=== PATIENT | female | born 1975 | race American Indian/Alaskan Native ===

== ENCOUNTER 2017-11-16 19:02 | Emergency (ER) | payer MEDICARE ==
[2017-11-16 20:07] LABS: Basophils # (Auto) 0.1 K/mm3 (0.0-0.1); Eosinophils # (Auto) 0.1 K/mm3 (0.0-0.4); Hematocrit 41.9 % (30.3-42.9); Hemoglobin 13.5 gm/dl (10.1-14.3); Lymphocytes # (Auto) 2.1 K/mm3 (1.2-5.4); Lymphocytes % (Auto) 30.1 % (13.4-35.0); Mean Corpuscular HGB Conc 32 % (30-34); Mean Corpuscular Hemoglobin 27 pg (28-32); Mean Corpuscular Volume 84 fl (79-97); Monocytes # (Auto) 0.4 K/mm3 (0.0-0.8); Monocytes % (Auto) 6.1 % (0.0-7.3); Platelet Count 199 K/mm3 (140-440); Red Blood Count 4.97 M/mm3 (3.65-5.03); Red Cell Distribution Width 14.5 % (13.2-15.2)
[2017-11-16 20:19] LABS: BUN/Creatinine Ratio 25; Blood Urea Nitrogen 15 mg/dL (7-17); Calcium 8.5 mg/dL (8.4-10.2); Hemolysis Index 39
--- NOTE | 2017-11-16 21:49 | XRay Report ---
FINAL REPORT EXAM: XR CHEST ROUTINE 2V HISTORY: Shortness of breath TECHNIQUE: PA and lateral views of the chest PRIORS: None. FINDINGS: Lines, tubes, and devices: N/A Lungs and pleura: Trachea is normal in position. Lungs are clear of infiltrate, pleural effusion, vascular congestion, or pneumothorax. Cardiomediastinal silhouette: Cardiac and mediastinal silhouettes are unremarkable. Other: Bony structures are intact. IMPRESSION: No acute cardiopulmonary process seen.
[2017-11-16 21:56] LABS: Alanine Aminotransferase 37 units/L (7-56); Albumin 3.9 g/dL (3.9-5); Bilirubin,Direct < 0.2 mg/dL (0-0.2)
--- NOTE | 2017-11-16 22:29 | Emergency Department Report ---
ED General Adult HPI - General Chief complaint: Extremity Problem,Nontraumatic Stated complaint: LEG PAIN/HTN Time Seen by Provider: 11/16/17 20:06 Source: patient Mode of arrival: Ambulatory Limitations: No Limitations - History of Present Illness Initial comments: This is a 42-year-old diabetic and hypertensive female who comes to the emergency room complaining of chronic pain which is worsened over the last 2 days and swelling in the lower extremities. She states she has some mild shortness of breath but otherwise no other symptoms like chest pain, abdominal pain, nausea vomiting diarrhea, fever or chills. She states that in [place] her doctor there gave her narcotics for her pain. She states that she has Neurontin at home which is what I suggested for her to take as well. She states that she will take some ibuprofen but it did not help the pain. She also has a history of fibromyalgia. No significant social history is appreciated. I commented that her blood pressure was elevated here in the ER. I told her that I would like to give her some blood pressure medications. She stated she did not need any and that she usually takes it at home and it is time For her to take her home blood pressure medicine. I offered again to give her blood pressure medicine and she again refused. I offered her an injection for her pain of the lower extremities. She states she does not want an injection. -: Gradual, days(s) (2 2) Location: lower extremity Radiation: non-radiation Consistency: constant Improves with: none Worsens with: none Associated Symptoms: denies other symptoms Treatments Prior to Arrival: NSAID - Related Data Allergies Allergy/AdvReac Type Severity Reaction Status Date / Time No Known Allergies Allergy Unverified 11/16/17 19:34 ED Review of Systems ROS: Stated complaint: LEG PAIN/HTN Other details as noted in HPI Comment: All other systems reviewed and negative Constitutional: no symptoms reported Eyes: as per HPI ENT: as per HPI Respiratory: see HPI Cardiovascular: as per HPI Endocrine: see HPI Gastrointestinal: as per HPI Genitourinary: as per HPI Musculoskeletal: as per HPI Skin: as per HPI Neurological: as per HPI Psychiatric: as per HPI Hematological/Lymphatic: as per HPI ED Past Medical Hx - Past Medical History Previous Medical History?: Yes Hx Hypertension: Yes Hx Diabetes: Yes Additional medical history: fibromyalgia - Surgical History Past Surgical History?: Yes Additional Surgical History: hysterectomy 2002 - Social History Smoking Status: Never Smoker Substance Use Type: None ED Physical Exam - General Limitations: No Limitations General appearance: alert, in no apparent distress - Head Head exam: Present: atraumatic, normocephalic - Eye Eye exam: Present: normal appearance, PERRL, EOMI - ENT ENT exam: Present: normal exam, normal orophraynx - Neck Neck exam: Present: normal inspection - Respiratory Respiratory exam: Present: normal lung sounds bilaterally. Absent: respiratory distress, wheezes, rales, rhonchi - Cardiovascular Cardiovascular Exam: Present: regular rate, normal rhythm, normal heart sounds - GI/Abdominal GI/Abdominal exam: Present: soft, normal bowel sounds. Absent: distended, tenderness, guarding, rebound, rigid - Rectal Rectal exam: Present: deferred - Extremities Exam Extremities exam: Present: normal inspection, full ROM, other (there may be trace edema in the lower extremities bilaterally but nothing significant.) - Back Exam Back exam: Present: normal inspection, full ROM - Neurological Exam Neurological exam: Present: alert, oriented X3, CN II-XII intact - Psychiatric Psychiatric exam: Present: normal affect, normal mood - Skin Skin exam: Present: warm, dry, intact, normal color ED Course Vital Signs 11/16/17 11/16/17 11/16/17 19:29 20:26 20:30 Temperature 98 F Pulse Rate 70 72 68 Respiratory 18 14 11 L Rate Blood Pressure 216/100 225/117 O2 Sat by Pulse 100 100 100 Oximetry 11/16/17 11/16/17 11/16/17 20:31 21:01 21:30 Temperature Pulse Rate 71 69 Respiratory 18 13 10 L Rate Blood Pressure 225/117 191/99 O2 Sat by Pulse 100 100 100 Oximetry 11/16/17 22:04 Temperature Pulse Rate 80 Respiratory 31 H Rate Blood Pressure 191/99 O2 Sat by Pulse Oximetry - Reevaluation(s) Reevaluation #1: 11/16/17 22:38 I explained to the patient that we do not prescribe narcotics from the ER. She will need to go to her primary care doctor or her pain management doctor for any narcotic refills. I advised her that I could give her a shot here in the emergency room or give her a pill in the emergency room but that would be the extent of it. I again advised her to use Neurontin that she has at home in conjunction with her anti-inflammatory medication for her pain control. She states she has this already at home and it was not helping which is why she came to the ER. She states she was given tramadol but it was not helping. She states that "10s to work for her". I told her I would give her [place] 10 in the emergency room but would not be prescribing that to her. She expresses understanding. Discharged accordingly, her labs reveal no acute findings. Her d-dimer is negative and her BNP is within normal limits. ED Medical Decision Making - Lab Data Result diagrams: 11/16/17 19:46 11/16/17 19:46 Critical care attestation.: If time is entered above; I have spent that time in minutes in the direct care of this critically ill patient, excluding procedure time. ED Disposition Clinical Impression: Fibromyalgia, Hypertension, uncontrolled Peripheral neuropathy Qualifiers: Peripheral neuropathy type: polyneuropathy, other Qualified Code(s): G62.89 - Other specified polyneuropathies Disposition: DC-01 TO HOME OR SELFCARE Is pt being admited?: No Does the pt Need Aspirin: No Condition: Stable Instructions: Diabetic Neuropathy (ED), Fibromyalgia (ED), Hypertension (ED) Additional Instructions: Rest, fluids, watch for worsening, new symptoms, return as needed, call 911 if you think you're having a life threatening emergency, follow up with your primary care doctor. Referrals: AURELIO JAFFE MD [Primary Care Provider] - 3-5 Days
[2017-11-16 22:36] VITALS: BP 172/112
[2017-11-16] MEDS ORDERED: NORCO 10/325 PO ONE (22:42)
== END 2017-11-16 23:01 | disposition home or self-care (01) ==
LOC: ED 19:02
DX: M79.7 Fibromyalgia (principal); I10 Essential (primary) hypertension; E11.40 Type 2 diabetes mellitus with diabetic neuropathy, unspecified
CPT/HCPCS: 36415; 71046; 80048; 80074; 83880; 85025; 85379; 93005; 93010; 99284

== ENCOUNTER 2017-11-24 02:12 | Emergency (ER) | payer MEDICARE ==
[2017-11-24 02:47] LABS: Basophils # (Auto) 0.1 K/mm3 (0.0-0.1); Basophils % (Auto) 1.2 % (0.0-1.8); Eosinophils # (Auto) 0.2 K/mm3 (0.0-0.4); Eosinophils % (Auto) 2.4 % (0.0-4.3); Hematocrit 41.6 % (30.3-42.9); Hemoglobin 13.9 gm/dl (10.1-14.3); Lymphocytes # (Auto) 2.2 K/mm3 (1.2-5.4); Lymphocytes % (Auto) 30.9 % (13.4-35.0); Mean Corpuscular HGB Conc 33 % (30-34); Mean Corpuscular Hemoglobin 27 pg (28-32); Mean Corpuscular Volume 82 fl (79-97); Monocytes # (Auto) 0.6 K/mm3 (0.0-0.8); Monocytes % (Auto) 7.7 % (0.0-7.3); Platelet Count 209 K/mm3 (140-440); Red Blood Count 5.06 M/mm3 (3.65-5.03)
[2017-11-24 03:08] LABS: BUN/Creatinine Ratio 18; Blood Urea Nitrogen 9 mg/dL (7-17); Calcium 8.4 mg/dL (8.4-10.2); Hemolysis Index 80
[2017-11-24 03:32] LABS: Bilirubin,Urine NEG (Negative); Blood,Urine NEG (Negative); Color,Urine Yellow (Yellow); Mucus,Urine 3+ /HPF; Protein,Urine <15 mg/dL mg/dL (Negative)
[2017-11-24 06:43] LABS: HCG Qualitative,Urine Negative (Negative)
[2017-11-24] MEDS ORDERED: NORCO 5/325 PO ONE (06:46)
--- NOTE | 2017-11-24 06:46 | Emergency Department Report ---
Chief Complaint: Pain General Stated Complaint: FLANK PAIN - HPI History of Present Illness: 42-year-old female past medical history diabetes hypertension? History of DVTs , history of chronic pain presents with complaint of left upper extremity discomfort and worsening bilateral lower extremity pain or some left leg and right leg. Pt is AAOx3, NAD, denies any chest pain or shortness of breath. Denies any recent falls or trauma. Denies any recent travel. Patient is not able to clearly tell me if she has had a DVT while has been anticoagulated within the last year but does state that she was told in the past she had clots in her legs - ROS Review of Systems: Complaint of acute on chronic lower extremity pain and swelling and left arm pain - Exam Vital Signs: Vital Signs 11/24/17 11/24/17 02:13 02:16 Temperature 98.4 F 98.4 F Pulse Rate 93 H Respiratory 18 Rate Blood Pressure 179/88 O2 Sat by Pulse 99 Oximetry Physical Exam: Left calf pain on deep palpation, +1 edema bilateral lower extremities. Heart S1-S2, patient is awake alert and oriented times 3 MSE screening note: Focused history and physical exam performed. Due to findings the following was ordered: Screening Assessment/Plan/Differential Dx: Lower extremity pain,? Left arm/ flank pain 1- This initial assessment/diagnostic orders/clinical plan/ treatment(s) is/are subject to change based on pt's health status, clinical progression and re- assessment by fellow clinical providers in the ED. Further treatment and workup at subsequent clinical provers discretion. Patient/guardians urged not to elope from ED as their condition may be serious if not clinically assessed and managed. 2-CBC, BMP done in triage 3-lower extremity Doppler ordered as patient has questionable history of previous DVT is now complaining of lower extremity pain ED Medical Decision Making - Lab Data Result diagrams: 11/24/17 02:33 11/24/17 02:33 ED Disposition for MSE Condition: Stable Referrals: PRIMARY CARE, [Primary Care Provider] - 3-5 Days
--- NOTE | 2017-11-24 07:17 | Emergency Department Report ---
ED Extremity Problem HPI - General Chief complaint: Pain General Stated complaint: FLANK PAIN Time Seen by Provider: 11/24/17 07:09 Source: patient, family Mode of arrival: Ambulatory Limitations: No Limitations - History of Present Illness Initial comments: 42-year-old female past medical history diabetes hypertension? History of DVTs , history of chronic pain presents with complaint of left upper extremity discomfort and worsening bilateral lower extremity pain or some left leg and right leg. Pt is AAOx3, NAD, denies any chest pain or shortness of breath. Denies any recent falls or trauma. Denies any recent travel. Patient is not able to clearly tell me if she has had a DVT while has been anticoagulated within the last year but does state that she was told in the past she had clots in her legs. She would fibromyalgia and she says she has chronic pain but pain is different from her fibromyalgia pain. Denies any fever or chills. Patient has a history of peripheral neuropathy MD Complaint: extremity pain Onset/Timin -: week(s) Location: bilateral lower extremity History of Same: Yes -: Yes myalgia, Yes arthralgia, No fever, No associated dyspnea, No associated chest pain Radiation: none Severity scale (0 -10): 4 Quality: aching Consistency: constant Improves with: immobilization, rest Worsens with: weight bearing, walking Associated Symptoms: myalgias, arthralgias. denies: chest pain, shortness of breath, fever, rash - Related Data Previous Rx's Medication Instructions Recorded Last Taken Type Bisacodyl [Dulcolax] 10 mg PO DAILY PRN 1 Days #2 tab 11/24/17 Unknown Rx Ondansetron [Zofran Odt] 4 mg PO Q6H PRN #12 tab.rapdis 11/24/17 Unknown Rx traMADol [Ultram] 50 mg PO Q6HR PRN #12 tablet 11/24/17 Unknown Rx Allergies Allergy/AdvReac Type Severity Reaction Status Date / Time No Known Allergies Allergy Unverified 11/16/17 19:34 ED Review of Systems ROS: Stated complaint: FLANK PAIN Other details as noted in HPI Comment: All other systems reviewed and negative Constitutional: no symptoms reported Respiratory: no symptoms reported Cardiovascular: denies: chest pain, palpitations, dyspnea on exertion, edema, syncope, paroxysmal nocturnal dyspnea Gastrointestinal: nausea, constipation. denies: abdominal pain, vomiting Genitourinary: denies: urgency, dysuria, frequency, hematuria, discharge Musculoskeletal: arthralgia, myalgia. denies: back pain, joint swelling Skin: denies: rash Neurological: denies: headache, numbness, paresthesias, abnormal gait ED Past Medical Hx - Past Medical History Previous Medical History?: Yes Hx Hypertension: Yes Hx Diabetes: Yes Hx Asthma: Yes Additional medical history: fibromyalgia, "over active thyroid" - Surgical History Past Surgical History?: Yes Additional Surgical History: hysterectomy 2001 - Family History Family history: hypertension - Social History Smoking Status: Never Smoker Substance Use Type: Alcohol - Medications Home Medications: Home Medications Medication Instructions Recorded Confirmed Last Taken Type Bisacodyl [Dulcolax] 10 mg PO DAILY PRN 1 Days #2 tab 11/24/17 Unknown Rx Ondansetron [Zofran Odt] 4 mg PO Q6H PRN #12 tab.rapdis 11/24/17 Unknown Rx traMADol [Ultram] 50 mg PO Q6HR PRN #12 tablet 11/24/17 Unknown Rx ED Physical Exam - General Limitations: No Limitations General appearance: alert, in no apparent distress - Head Head exam: Present: atraumatic, normocephalic, normal inspection - Eye Eye exam: Present: normal appearance, PERRL, EOMI Pupils: Present: normal accommodation - ENT ENT exam: Present: normal exam, normal orophraynx, mucous membranes moist - Neck Neck exam: Present: normal inspection, other (no C-spine tenderness). Absent: tenderness, meningismus, full ROM, lymphadenopathy - Respiratory Respiratory exam: Present: normal lung sounds bilaterally. Absent: respiratory distress, chest wall tenderness - Cardiovascular Cardiovascular Exam: Present: regular rate, normal rhythm, normal heart sounds. Absent: systolic murmur, diastolic murmur - GI/Abdominal GI/Abdominal exam: Present: soft, normal bowel sounds. Absent: distended, tenderness, guarding, rebound, rigid - Extremities Exam Extremities exam: Present: normal inspection, full ROM, tenderness (both legs), normal capillary refill, other (no clubbing, cyanosis or edema. +2 pulses all extremities. No neurovascular compromise.). Absent: pedal edema, joint swelling, calf tenderness - Back Exam Back exam: Present: normal inspection, full ROM, other (ambulates without any difficulties). Absent: tenderness, CVA tenderness (R), CVA tenderness (L), rash noted - Neurological Exam Neurological exam: Present: alert, oriented X3, normal gait, reflexes normal. Absent: motor sensory deficit - Psychiatric Psychiatric exam: Present: normal affect, normal mood - Skin Skin exam: Present: warm, dry, intact, normal color. Absent: rash ED Course Vital Signs 11/24/17 11/24/17 02:13 02:16 Temperature 98.4 F 98.4 F Pulse Rate 93 H Respiratory 18 Rate Blood Pressure 179/88 O2 Sat by Pulse 99 Oximetry - Reevaluation(s) Reevaluation #1: 11/24/17 09:27 Patient given hydrocodone 1 tablet in emergency room for pain which relieved her pain. ED Medical Decision Making - Lab Data Result diagrams: 11/24/17 02:33 11/24/17 02:33 Lab Results 11/24/17 11/24/17 11/24/17 Range/Units 02:33 02:33 Unknown WBC 7.1 (4.5-11.0) K/mm3 RBC 5.06 H (3.65-5.03) M/mm3 Hgb 13.9 (10.1-14.3) gm/dl Hct 41.6 (30.3-42.9) % MCV 82 (79-97) fl MCH 27 L (28-32) pg MCHC 33 (30-34) % RDW 14.0 (13.2-15.2) % Plt Count 209 (140-440) K/mm3 Lymph % (Auto) 30.9 (13.4-35.0) % [place] % (Auto) 7.7 H (0.0-7.3) % Eos % (Auto) 2.4 (0.0-4.3) % Baso % (Auto) 1.2 (0.0-1.8) % Lymph # 2.2 (1.2-5.4) K/mm3 [place] # 0.6 (0.0-0.8) K/mm3 Eos # 0.2 (0.0-0.4) K/mm3 Baso # 0.1 (0.0-0.1) K/mm3 Seg Neutrophils % 57.8 (40.0-70.0) % Seg Neutrophils # 4.1 (1.8-7.7) K/mm3 Sodium 141 (137-145) mmol/L Potassium 3.8 (3.6-5.0) mmol/L Chloride 101.5 (98-107) mmol/L Carbon Dioxide 28 (22-30) mmol/L Anion Gap 15 mmol/L BUN 9 (7-17) mg/dL Creatinine 0.5 L (0.7-1.2) mg/dL Estimated GFR > 60 ml/min BUN/Creatinine Ratio 18 % Glucose 99 (65-100) mg/dL Calcium 8.4 (8.4-10.2) mg/dL Urine Color Yellow (Yellow) Urine Turbidity Clear (Clear) Urine pH 5.0 (5.0-7.0) Ur Specific [place] 1.025 (1.003-1.030) Urine Protein <15 mg/dl (Negative) mg/dL Urine Glucose (UA) Neg (Negative) mg/dL Urine Ketones Neg (Negative) mg/dL Urine Blood Neg (Negative) Urine Nitrite Neg (Negative) Urine Bilirubin Neg (Negative) Urine Urobilinogen 4.0 (<2.0) mg/dL Ur Leukocyte Esterase Neg (Negative) Urine WBC (Auto) 1.0 (0.0-6.0) /HPF Urine RBC (Auto) 1.0 (0.0-6.0) /HPF U Epithel Cells (Auto) 5.0 (0-13.0) /HPF Urine Mucus 3+ /HPF Urine HCG, Qual (Negative) 11/24/17 Range/Units Unknown WBC (4.5-11.0) K/mm3 RBC (3.65-5.03) M/mm3 Hgb (10.1-14.3) gm/dl Hct (30.3-42.9) % MCV (79-97) fl MCH (28-32) pg MCHC (30-34) % RDW (13.2-15.2) % Plt Count (140-440) K/mm3 Lymph % (Auto) (13.4-35.0) % [place] % (Auto) (0.0-7.3) % Eos % (Auto) (0.0-4.3) % Baso % (Auto) (0.0-1.8) % Lymph # (1.2-5.4) K/mm3 [place] # (0.0-0.8) K/mm3 Eos # (0.0-0.4) K/mm3 Baso # (0.0-0.1) K/mm3 Seg Neutrophils % (40.0-70.0) % Seg Neutrophils # (1.8-7.7) K/mm3 Sodium (137-145) mmol/L Potassium (3.6-5.0) mmol/L Chloride (98-107) mmol/L Carbon Dioxide (22-30) mmol/L Anion Gap mmol/L BUN (7-17) mg/dL Creatinine (0.7-1.2) mg/dL Estimated GFR ml/min BUN/Creatinine Ratio % Glucose (65-100) mg/dL Calcium (8.4-10.2) mg/dL Urine Color (Yellow) Urine Turbidity (Clear) Urine pH (5.0-7.0) Ur Specific [place] (1.003-1.030) Urine Protein (Negative) mg/dL Urine Glucose (UA) (Negative) mg/dL Urine Ketones (Negative) mg/dL Urine Blood (Negative) Urine Nitrite (Negative) Urine Bilirubin (Negative) Urine Urobilinogen (<2.0) mg/dL Ur Leukocyte Esterase (Negative) Urine WBC (Auto) (0.0-6.0) /HPF Urine RBC (Auto) (0.0-6.0) /HPF U Epithel Cells (Auto) (0-13.0) /HPF Urine Mucus /HPF Urine HCG, Qual Negative (Negative) - Radiology Data Radiology results: report reviewed Bilateral lower extremity Doppler ultrasound negative for SVT or DVT. - Medical Decision Making ED course: She had hair with bilateral lower extremity pain despite an worsening. She says she started having pain 3 weeks ago and she has chronic pain from fibromyalgia but this pain in her legs is different. She is also complaining of constipation and nausea. Pain is worse on the left side. CBC, chemistry and urinalysis revealed no significant abnormalities. Bilateral lower extremity Doppler ultrasound revealed patient with no SVT or DVT. This is communicated to patient. I discussed with her that I can put her on some medication for constipation, and Ultram for pain, medication for nausea. She doesn't primary care physician and I discussed with her she is to follow-up with her primary care in 2 days Critical care attestation.: If time is entered above; I have spent that time in minutes in the direct care of this critically ill patient, excluding procedure time. ED Disposition Clinical Impression: Nausea alone Lower extremity pain Qualifiers: Laterality: bilateral Qualified Code(s): M79.604 - Pain in right leg; M79.605 - Pain in left leg Constipation Qualifiers: Constipation type: unspecified constipation type Qualified Code(s): K59.00 - Constipation, unspecified Disposition: DC- TO HOME OR SELFCARE Is pt being admited?: No Does the pt Need Aspirin: No Condition: Stable Instructions: Arthralgia (ED), Chronic Pain (ED), Acute Nausea and Vomiting (ED ), High Fiber Diet (ED), Constipation (ED) Additional Instructions: Please increase your fluid intake and fiber in your diet to prevent constipation Take Ultram for pain 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 Prescriptions: Bisacodyl [Dulcolax] 10 mg PO DAILY PRN 1 Days #2 tab PRN Reason: Constipation Ondansetron [Zofran Odt] 4 mg PO Q6H PRN #12 tab.rapdis PRN Reason: Nausea And Vomiting traMADol [Ultram] 50 mg PO Q6HR PRN #12 tablet PRN Reason: Pain Referrals: PRIMARY CARE, [Primary Care Provider] - 11/26/17 [facility] [Outside] - 11/26/17 Forms: Accompanied Note, Work/School Release Form(ED)
[2017-11-24 09:43] VITALS: BP 164/81
== END 2017-11-24 09:41 | disposition home or self-care (01) ==
LOC: ED 02:12
DX: M79.604 Pain in right leg (principal); M79.605 Pain in left leg; K59.00 Constipation, unspecified; I10 Essential (primary) hypertension; E11.9 Type 2 diabetes mellitus without complications
CPT/HCPCS: 36415; 80048; 81001; 81025; 85025; 87086; 93970; 99284

== ENCOUNTER 2018-03-11 08:02 | Outpatient (CLI) | payer MEDICARE ==
--- NOTE | 2018-03-11 12:12 | Ultrasound Report ---
ULTRASOUND ABDOMEN LIMITED: TECHNIQUE: Transabdominal ultrasound with color Doppler interrogation. HISTORY: Abnormal liver function tests. COMPARISON: none. FINDINGS: LIVER: Mild diffuse fatty infiltration of the liver is identified. No focal liver mass or surface nodularity. BILIARY SYSTEM: Cholecystectomy. The CBD measures 3 mm. PANCREAS: Normal. RIGHT KIDNEY: Normal. PROXIMAL AORTA: Normal. ASCITES: None. IMPRESSION: Mild fatty infiltration of the liver.
== END 2018-03-11 08:03 | disposition home or self-care (01) ==
LOC: US 08:02
PROVIDERS: ATTEND Internal Medicine
DX: K76.0 Fatty (change of) liver, not elsewhere classified (principal); J45.909 Unspecified asthma, uncomplicated; I10 Essential (primary) hypertension; Z90.710 Acquired absence of both cervix and uterus; Z90.49 Acquired absence of other specified parts of digestive tract
CPT/HCPCS: 76705

== ENCOUNTER 2018-03-28 21:55 | Emergency (ER) | payer MEDICARE ==
[2018-03-28 23:06] VITALS: BP 191/103
[2018-03-29 00:07] LABS: Basophils % (Auto) 0.4 % (0.0-1.8); Eosinophils % (Auto) 0.4 % (0.0-4.3); Hematocrit 38.4 % (30.3-42.9); Hemoglobin 12.8 gm/dl (10.1-14.3); Lymphocytes % (Auto) 19.2 % (13.4-35.0); Mean Corpuscular HGB Conc 33 % (30-34); Mean Corpuscular Hemoglobin 28 pg (28-32); Mean Corpuscular Volume 84 fl (79-97); Monocytes # (Auto) 0.7 K/mm3 (0.0-0.8); Monocytes % (Auto) 6.9 % (0.0-7.3); Platelet Count 227 K/mm3 (140-440); Red Blood Count 4.56 M/mm3 (3.65-5.03); Red Cell Distribution Width 14.7 % (13.2-15.2)
[2018-03-29 00:25] LABS: BUN/Creatinine Ratio 13; Blood Urea Nitrogen 8 mg/dL (7-17); Calcium 9.4 mg/dL (8.4-10.2); Hemolysis Index 2
== END 2018-03-29 02:00 | disposition left against medical advice (07) ==
LOC: ED 21:55
DX: R03.0 Elevated blood-pressure reading, without diagnosis of hypertension (principal); Z53.21 Procedure and treatment not carried out due to patient leaving prior to being seen by health care provider
CPT/HCPCS: 36415; 80048; 85025; 93005; 93010

== ENCOUNTER 2018-04-07 11:31 | Observation (INO) | payer MEDICARE ==
--- NOTE | 2018-04-07 12:27 | Emergency Department Report ---
ED Chest Pain HPI - General Chief Complaint: Chest Pain Stated Complaint: HIGH BLOOD PRESSURE/CHEST PAIN Time Seen by Provider: 04/07/18 12:16 Source: EMS Mode of arrival: Ambulatory Limitations: No Limitations - History of Present Illness Initial Comments: 42-year-old female presents to the emergency department from home via EMS with complaints of headache, chest pain, weakness, nausea and vomiting. The headache has been going on since last night. It is generalized and she denies any vision change, slurred speech or any neurological deficits. The chest pain started this morning. It is midsternal, nonradiating and is a tightness sensation. Patient received a sublingual nitroglycerin and full dose aspirin in route with EMS without any relief. She has a past medical history of hypertension, rheumatoid arthritis, diabetes, fibromyalgia, hyperthyroidism. Her primary care physician is Dr. Jacquelin David. 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 No recent travel or sick contacts at home. Severity scale (0 -10): 4 - Related Data Home Medications Medication Instructions Recorded Confirmed Last Taken Levothyroxine [Synthroid] 112 mcg PO QAM 04/07/18 04/07/18 Unknown Nortriptyline [Pamelor] 25 mg PO TID 04/07/18 04/07/18 Unknown Prednisone [predniSONE (Chuy) ER 5 mg PO QDAY 04/07/18 04/07/18 Unknown TAB] Allergies Allergy/AdvReac Type Severity Reaction Status Date / Time No Known Allergies Allergy Verified 04/07/18 13:23 Heart Score - HEART Score History: Moderately suspicious EKG: Non-specific Age: < 45 Risk factors: 1-2 risk factors Troponin: < normal limit HEART Score: 3 ED Review of Systems ROS: Stated complaint: HIGH BLOOD PRESSURE/CHEST PAIN Other details as noted in HPI Comment: All other systems reviewed and negative Constitutional: denies: chills, fever Eyes: denies: eye pain, eye discharge, vision change ENT: denies: ear pain, throat pain Respiratory: shortness of breath. denies: cough Cardiovascular: chest pain. denies: edema Gastrointestinal: nausea, vomiting. denies: abdominal pain Genitourinary: denies: urgency, dysuria, discharge Musculoskeletal: denies: back pain, joint swelling, arthralgia Skin: denies: rash, lesions Neurological: headache. denies: numbness ED Past Medical Hx - Past Medical History Previous Medical History?: Yes Hx Hypertension: Yes Hx Diabetes: Yes Hx Arthritis: Yes (RA) Hx Asthma: Yes Additional medical history: fibromyalgia, "over active thyroid" - Surgical History Past Surgical History?: Yes Hx Cholecystectomy: Yes Additional Surgical History: hysterectomy 2001. x2. scar tissue remove - Social History Smoking Status: Never Smoker Substance Use Type: None - Medications Home Medications: Home Medications Medication Instructions Recorded Confirmed Last Taken Type Levothyroxine [Synthroid] 112 mcg PO QAM 04/07/18 04/07/18 Unknown History Nortriptyline [Pamelor] 25 mg PO TID 04/07/18 04/07/18 Unknown History Prednisone [predniSONE (Chuy) ER 5 mg PO QDAY 04/07/18 04/07/18 Unknown History TAB] ED Physical Exam - General Limitations: No Limitations - Other Other exam information: GENERAL: The patient is well-developed well-nourished. HENT: Normocephalic. Atraumatic. Patient has moist mucous membranes. EYES: Extraocular motions are intact. Pupils equal reactive to light bilaterally. No nystagmus. NECK: Supple. Trachea is midline.. CHEST/LUNGS: Clear to auscultation. There is no respiratory distress noted. HEART/CARDIOVASCULAR: Regular. There is no tachycardia. There is no murmur. ABDOMEN: Abdomen is soft, nontender. Patient has normal bowel sounds. There is no abdominal distention. SKIN: Skin is warm and dry. NEURO: The patient is awake, alert, and oriented. The patient is cooperative. The patient has no focal neurologic deficits. The patient has normal speech. Cranial nerves II through XII grossly intact. MUSCULOSKELETAL: There is no tenderness or deformity. There is no limitation range of motion. There is no evidence of acute injury. ED Course Vital Signs 04/07/18 04/07/18 04/07/18 11:48 11:49 12:18 Temperature 98.1 F Pulse Rate 92 H Respiratory 16 18 12 Rate Blood Pressure Blood Pressure 223/115 [Left] O2 Sat by Pulse 98 100 Oximetry 04/07/18 04/07/18 04/07/18 12:30 12:45 13:00 Temperature Pulse Rate 77 81 83 Respiratory 19 15 12 Rate Blood Pressure 204/104 215/98 Blood Pressure [Left] O2 Sat by Pulse 98 99 Oximetry 04/07/18 04/07/18 04/07/18 13:10 13:15 13:30 Temperature Pulse Rate 90 68 72 Respiratory 13 11 L Rate Blood Pressure 215/98 192/99 199/103 Blood Pressure [Left] O2 Sat by Pulse 97 100 Oximetry 04/07/18 04/07/18 04/07/18 13:45 14:13 14:15 Temperature Pulse Rate 70 Respiratory 30 H 19 16 Rate Blood Pressure 193/98 199/103 185/97 Blood Pressure [Left] O2 Sat by Pulse 99 98 99 Oximetry 04/07/18 04/07/18 04/07/18 14:31 14:45 15:01 Temperature Pulse Rate Respiratory 17 12 12 Rate Blood Pressure 182/90 196/94 195/101 Blood Pressure [Left] O2 Sat by Pulse 100 100 100 Oximetry 04/07/18 04/07/18 04/07/18 15:15 15:31 15:45 Temperature Pulse Rate 75 Respiratory 15 18 12 Rate Blood Pressure 206/103 205/94 205/94 Blood Pressure [Left] O2 Sat by Pulse 99 100 Oximetry 04/07/18 04/07/18 04/07/18 16:01 16:15 16:31 Temperature Pulse Rate 78 73 81 Respiratory 13 21 19 Rate Blood Pressure 205/94 205/94 211/101 Blood Pressure [Left] O2 Sat by Pulse 100 Oximetry 04/07/18 04/07/18 04/07/18 16:45 17:01 17:15 Temperature Pulse Rate 90 92 H 88 Respiratory 18 12 14 Rate Blood Pressure 185/94 199/101 179/83 Blood Pressure [Left] O2 Sat by Pulse 100 99 100 Oximetry 04/07/18 04/07/18 04/07/18 17:30 17:42 17:45 Temperature Pulse Rate 92 H 99 H 98 H Respiratory 12 14 Rate Blood Pressure 197/94 199/109 175/86 Blood Pressure [Left] O2 Sat by Pulse 100 100 Oximetry 04/07/18 04/07/18 18:00 18:15 Temperature Pulse Rate 88 Respiratory Rate Blood Pressure 183/74 Blood Pressure [Left] O2 Sat by Pulse 100 Oximetry KEITH score - Keith Score Age > 65: (0) No Aspirin use within the Past 7 Days: (0) No 3 or more CAD Risk Factors: (0) No 2 or more Angina events in past 24 hrs: (1) Yes Known CAD with more than 50% Stenosis: (0) No Elevated Cardiac Markers: (0) No ST Deviation Greater than 0.5mm: (0) No KEITH Score: 1 ED Medical Decision Making - Lab Data Result diagrams: 04/08/18 07:35 04/08/18 07:35 - EKG Data -: EKG Interpreted by Me EKG shows normal: sinus rhythm, axis, intervals, QRS complexes (LVH), ST-T waves Rate: normal - EKG Data When compared to previous EKG there are: previous EKG unavailable Interpretation: LVH - Radiology Data Radiology results: report reviewed, image reviewed interpreted by me: Chest x-ray does not show any acute process. There are no pleural effusions, obvious pneumonia and there is no pneumothorax. PROCEDURE: CT HEAD/BRAIN WO CON TECHNIQUE: Computerized tomography of the head was performed without contrast material. HISTORY: headache with hypertension COMPARISON: No prior studies are available for comparison. FINDINGS: Skull and scalp: Normal. Paranasal sinuses: Normal. Ventricles and subarachnoid spaces: Normal. Cerebrum: Mild degree bilateral frontal periventricular white matter hypodensity is noted. A small ill-defined hypodense lesion measuring about 4 millimeters is noted in the right basal ganglia. An acute intra-axial or extra-axial hemorrhage is not identified.. Cerebellum and brainstem: No evidence of hemorrhage, acute infarction or mass. Vasculature: Normal. Comments: None. IMPRESSION: Nonspecific mild degree bilateral periventricular white matter hypodensity is noted. This may represent chronic microangiopathy. MRI is recommended to rule out other etiologies such as a demyelinating process. 4 millimeter ill-defined hypodense lesion of right basal ganglia may represent a subacute versus chronic infarct in the appropriate clinical setting. No acute intracranial hemorrhage peer Transcribed By: [facility] [place]ictated By: BETY HERNÁNDEZ Electronically Authenticated By: BETY HERNÁNDEZ Signed Date/Time: 04/07/182038 - Medical Decision Making This patient presents with a complaint of a headache, chest pain and elevated blood pressure. Patient's labs have been mostly unremarkable including negative troponins 2 and a negative d-dimer. EKG shows some LVH consistent with her hypertension but otherwise no signs of ST elevation [place] or dysrhythmia. Patient was given Lopressor, hydralazine 2, labetalol and pain medication but still has elevated blood pressure. However the pain medication did help with the chest pain. Chest x-ray does not show any acute process. CT of the head without contrast does not show any bleed, shift, mass or any other acute process. Patient has never had a stress test for full cardiac workup and therefore will be admitted to the hospital for further evaluation and treatment. She was accepted for admission by the hospitalist, Dr. Ge. - Differential Diagnosis [place], PE, costochondritis, tension headache, migraine Critical Care Time: No Critical care attestation.: If time is entered above; I have spent that time in minutes in the direct care of this critically ill patient, excluding procedure time. ED Disposition Clinical Impression: Acute chest pain, Hypertensive urgency Headache Qualifiers: Headache type: unspecified Headache chronicity pattern: acute headache Intractability: not intractable Qualified Code(s): R51 - Headache Disposition: OP ADMIT IP TO THIS HOSP Is pt being admited?: Yes Condition: Fair Time of Disposition: 19:54
--- NOTE | 2018-04-07 12:39 | XRay Report ---
CHEST ONE VIEW INDICATION: Chest pain. COMPARISON: 11/16/2017. FINDINGS: Portable, single, frontal chest radiograph demonstrates stable cardiomediastinal silhouette/borderline cardiomegaly. Clear lungs. Unremarkable bones. Extrinsic EKG leads. CONCLUSION: No acute disease in the chest. Thank you for the opportunity to participate in this patient's care.
[2018-04-07] MEDS ORDERED: LOPRESSOR IV ONE (12:55)
[2018-04-07] MEDS ORDERED: MORPHINE IV ONE ×2 (12:55→15:56)
[2018-04-07 13:19] LABS: Basophils # (Auto) 0.1 K/mm3 (0.0-0.1); Basophils % (Auto) 0.7 % (0.0-1.8); Eosinophils % (Auto) 0.6 % (0.0-4.3); Hematocrit 37.9 % (30.3-42.9); Hemoglobin 12.6 gm/dl (10.1-14.3); Lymphocytes # (Auto) 1.3 K/mm3 (1.2-5.4); Lymphocytes % (Auto) 16.2 % (13.4-35.0); Mean Corpuscular HGB Conc 33 % (30-34); Mean Corpuscular Hemoglobin 28 pg (28-32); Mean Corpuscular Volume 84 fl (79-97); Monocytes # (Auto) 0.5 K/mm3 (0.0-0.8); Monocytes % (Auto) 5.4 % (0.0-7.3); Platelet Count 210 K/mm3 (140-440); Red Blood Count 4.52 M/mm3 (3.65-5.03); Red Cell Distribution Width 14.3 % (13.2-15.2)
[2018-04-07 13:20] LABS: Alanine Aminotransferase 41 units/L (7-56); Albumin 4.2 g/dL (3.9-5); BUN/Creatinine Ratio 20; Blood Urea Nitrogen 10 mg/dL (7-17); Calcium 9.1 mg/dL (8.4-10.2); Hemolysis Index 0
[2018-04-07] MEDS ORDERED: K-DUR PO ONE ×2 (13:21→15:32)
[2018-04-07 14:24] LABS: Bilirubin,Urine NEG (Negative); Blood,Urine NEG (Negative); Color,Urine Straw (Yellow); Protein,Urine <15 mg/dL mg/dL (Negative); Urobilinogen,Urine < 2.0 mg/dL (<2.0); WBC,Urine < 1.0 /HPF (0.0-6.0)
[2018-04-07] MEDS ORDERED: APRESOLINE IV ONE ×2 (15:56→17:41)
[2018-04-07] MEDS ORDERED: ZOFRAN ONE (18:10)
[2018-04-07] MEDS ORDERED: NORMODYNE IV ONE ×2 (18:10)
[2018-04-07] MEDS ORDERED: ZOFRAN IV ONE (18:10)
--- NOTE | 2018-04-07 20:45 | Cat Scan Report ---
FINAL REPORT PROCEDURE: CT HEAD/BRAIN WO CON TECHNIQUE: Computerized tomography of the head was performed without contrast material. HISTORY: headache with hypertension COMPARISON: No prior studies are available for comparison. FINDINGS: Skull and scalp: Normal. Paranasal sinuses: Normal. Ventricles and subarachnoid spaces: Normal. Cerebrum: Mild degree bilateral frontal periventricular white matter hypodensity is noted. A small ill-defined hypodense lesion measuring about 4 millimeters is noted in the right basal ganglia. An acute intra-axial or extra-axial hemorrhage is not identified.. Cerebellum and brainstem: No evidence of hemorrhage, acute infarction or mass. Vasculature: Normal. Comments: None. IMPRESSION: Nonspecific mild degree bilateral periventricular white matter hypodensity is noted. This may represent chronic microangiopathy. MRI is recommended to rule out other etiologies such as a demyelinating process. 4 millimeter ill-defined hypodense lesion of right basal ganglia may represent a subacute versus chronic infarct in the appropriate clinical setting. No acute intracranial hemorrhage peer
[2018-04-07] MEDS ORDERED: APRESOLINE IV PRN (21:09)
[2018-04-07] MEDS ORDERED: MORPHINE IV PRN (21:33)
[2018-04-08] MEDS ORDERED: TYLENOL PO PRN ×2 (00:33→07:24)
--- NOTE | 2018-04-08 07:15 | History and Physical Report ---
History of Present Illness Date of examination: 04/07/18 Date of admission: 04/07/18 15:57 Chief complaint: CC Chest pain History of present illness: History of Present Illness 42-year-old female presents to the emergency department from home via EMS with complaints of headache, chest pain, weakness, nausea and vomiting. The headache has been going on since last night. It is generalized and she denies any vision change, slurred speech or any neurological deficits. The chest pain started this morning. It is midsternal, nonradiating and is a tightness sensation. Patient received a sublingual nitroglycerin and full dose aspirin in route with EMS without any relief. She has a past medical history of hypertension, rheumatoid arthritis, diabetes, fibromyalgia, hyperthyroidism. Her primary care physician is Dr. Jacquelin David. She does not have a upper doubler and has never had a stress test. No recent travel or sick contacts at home. - Past Medical History Previous Medical History?: Yes Hx Hypertension: Yes Hx Diabetes: Yes Hx Arthritis: Yes (RA) Hx Asthma: Yes Additional medical history: fibromyalgia, "over active thyroid" - Surgical History Past Surgical History?: Yes Hx Cholecystectomy: Yes Additional Surgical History: hysterectomy 2001. x2. scar tissue remove - Social History Smoking Status: Never Smoker Substance Use Type: None - Medications Home Medications: Home Medications Medication Instructions Recorded Confirmed Last Taken Type Levothyroxine [Synthroid] 112 mcg PO QAM 04/07/18 04/07/18 Unknown History Nortriptyline [Pamelor] 25 mg PO TID 04/07/18 04/07/18 Unknown History Prednisone [predniSONE (Chuy) ER 5 mg PO QDAY 04/07/18 04/07/18 Unknown History TAB] Review of Systems ROS: Stated complaint: HIGH BLOOD PRESSURE/CHEST PAIN Other details as noted in HPI Comment: All other systems reviewed and negative Constitutional: denies: chills, fever Eyes: denies: eye pain, eye discharge, vision change ENT: denies: ear pain, throat pain Respiratory: shortness of breath. denies: cough Cardiovascular: chest pain. denies: edema Gastrointestinal: nausea, vomiting. denies: abdominal pain Genitourinary: denies: urgency, dysuria, discharge Musculoskeletal: denies: back pain, joint swelling, arthralgia Skin: denies: rash, lesions Neurological: headache. denies: numbness Medications and Allergies Allergies Allergy/AdvReac Type Severity Reaction Status Date / Time No Known Allergies Allergy Verified 04/07/18 13:23 Home Medications Medication Instructions Recorded Confirmed Last Taken Type Levothyroxine [Synthroid] 112 mcg PO QAM 04/07/18 04/07/18 Unknown History Nortriptyline [Pamelor] 25 mg PO TID 04/07/18 04/07/18 Unknown History Prednisone [predniSONE (Chuy) ER 5 mg PO QDAY 04/07/18 04/07/18 Unknown History TAB] Active Meds: Active Medications Acetaminophen (Tylenol) 650 mg PO Q6H PRN PRN Reason: Pain, Mild (1-3) Hydralazine HCl (Apresoline) 10 mg IV Q4HR PRN PRN Reason: Increased Blood Pressure Last Admin: 04/07/18 22:23 Dose: 10 mg Morphine Sulfate (Morphine) 2 mg IV Q4H PRN PRN Reason: Pain, Moderate (4-6) Last Admin: 04/08/18 00:50 Dose: 2 mg Exam - Constitutional Vitals: Temp Pulse Resp BP Pulse Ox 98.3 F 87 18 148/78 99 04/08/18 04:39 04/08/18 04:39 04/08/18 04:39 04/08/18 04:39 04/08/18 04:39 General appearance: Present: no acute distress, well-nourished - EENT Eyes: Present: PERRL ENT: hearing intact, clear oral mucosa - Neck Neck: Present: supple, normal ROM - Respiratory Respiratory effort: normal Respiratory: bilateral: CTA - Cardiovascular Heart Sounds: Present: S1 & S2. Absent: rub, click - Extremities Extremities: pulses symmetrical, No edema Peripheral Pulses: within normal limits - Abdominal General gastrointestinal: Present: soft, non-tender, non-distended, normal bowel sounds Female genitourinary: Present: normal - Integumentary Integumentary: Present: clear, warm, dry - Musculoskeletal Musculoskeletal: gait normal, strength equal bilaterally - Psychiatric Psychiatric: appropriate mood/affect, intact judgment & insight - Neurologic Neurologic: CNII-XII intact, moves all extremities Results - Labs CBC & Chem 7: 04/07/18 12:37 04/07/18 12:37 Labs: Laboratory Last Values WBC 8.3 K/mm3 (4.5-11.0) 04/07/18 12:37 RBC 4.52 M/mm3 (3.65-5.03) 04/07/18 12:37 Hgb 12.6 gm/dl (10.1-14.3) 04/07/18 12:37 Hct 37.9 % (30.3-42.9) 04/07/18 12:37 MCV 84 fl (79-97) 04/07/18 12:37 MCH 28 pg (28-32) 04/07/18 12:37 MCHC 33 % (30-34) 04/07/18 12:37 RDW 14.3 % (13.2-15.2) 04/07/18 12:37 Plt Count 210 K/mm3 (140-440) 04/07/18 12:37 Lymph % (Auto) 16.2 % (13.4-35.0) 04/07/18 12:37 [place] % (Auto) 5.4 % (0.0-7.3) 04/07/18 12:37 Eos % (Auto) 0.6 % (0.0-4.3) 04/07/18 12:37 Baso % (Auto) 0.7 % (0.0-1.8) 04/07/18 12:37 Lymph # 1.3 K/mm3 (1.2-5.4) 04/07/18 12:37 [place] # 0.5 K/mm3 (0.0-0.8) 04/07/18 12:37 Eos # 0.0 K/mm3 (0.0-0.4) 04/07/18 12:37 Baso # 0.1 K/mm3 (0.0-0.1) 04/07/18 12:37 Seg Neutrophils % 77.1 % (40.0-70.0) H 04/07/18 12:37 Seg Neutrophils # 6.4 K/mm3 (1.8-7.7) 04/07/18 12:37 D-Dimer 212.55 ng/mlDDU (0-234) 04/07/18 12:37 Sodium 142 mmol/L (137-145) 04/07/18 12:37 Potassium 3.3 mmol/L (3.6-5.0) L 04/07/18 12:37 Chloride 100.9 mmol/L (98-107) 04/07/18 12:37 Carbon Dioxide 27 mmol/L (22-30) 04/07/18 12:37 Anion Gap 17 mmol/L 04/07/18 12:37 BUN 10 mg/dL (7-17) 04/07/18 12:37 Creatinine 0.5 mg/dL (0.7-1.2) L 04/07/18 12:37 Estimated GFR > 60 ml/min 04/07/18 12:37 BUN/Creatinine Ratio 20 % 04/07/18 12:37 Glucose 120 mg/dL (65-100) H 04/07/18 12:37 POC Glucose 119 (70-105) H 04/08/18 06:27 Calcium 9.1 mg/dL (8.4-10.2) 04/07/18 12:37 Total Bilirubin 0.50 mg/dL (0.1-1.2) 04/07/18 12:37 AST 26 units/L (5-40) 04/07/18 12:37 ALT 41 units/L (7-56) 04/07/18 12:37 Alkaline Phosphatase 121 units/L (35-129) 04/07/18 12:37 Troponin T < 0.010 ng/mL (0.00-0.029) 04/07/18 20:10 Total Protein 7.1 g/dL (6.3-8.2) 04/07/18 12:37 Albumin 4.2 g/dL (3.9-5) 04/07/18 12:37 Albumin/Globulin Ratio 1.4 % 04/07/18 12:37 TSH 6.780 mlU/mL (0.270-4.200) H 04/07/18 12:37 HCG, Qual Negative (Negative) 04/07/18 12:37 Urine Color Straw (Yellow) 04/07/18 14:01 Urine Turbidity Clear (Clear) 04/07/18 14:01 Urine pH 8.0 (5.0-7.0) H 04/07/18 14:01 Ur Specific [place] 1.009 (1.003-1.030) 04/07/18 14:01 Urine Protein <15 mg/dl mg/dL (Negative) 04/07/18 14:01 Urine Glucose (UA) Neg mg/dL (Negative) 04/07/18 14:01 Urine Ketones Neg mg/dL (Negative) 04/07/18 14:01 Urine Blood Neg (Negative) 04/07/18 14:01 Urine Nitrite Neg (Negative) 04/07/18 14:01 Urine Bilirubin Neg (Negative) 04/07/18 14:01 Urine Urobilinogen < 2.0 mg/dL (<2.0) 04/07/18 14:01 Ur Leukocyte Esterase Neg (Negative) 04/07/18 14:01 Urine WBC (Auto) < 1.0 /HPF (0.0-6.0) 04/07/18 14:01 Urine RBC (Auto) 5.0 /HPF (0.0-6.0) 04/07/18 14:01 U Epithel Cells (Auto) 2.0 /HPF (0-13.0) 04/07/18 14:01 - Imaging and Cardiology EKG: report reviewed Assessment and Plan Advance Directives: Yes (Full code) VTE prophylaxis?: Chemical Plan of care discussed with patient/family: Yes - Patient Problems (1) Acute chest pain Current Visit: Yes Status: Acute Plan to address problem: Serial troponins and Lexiscan in am (2) Hypertensive urgency Current Visit: Yes Status: Acute Plan to address problem: Hydralazine IV pRn (3) HTN (hypertension) Current Visit: Yes Status: Chronic Qualifiers: Hypertension type: essential hypertension Qualified Code(s): I10 - Essential (primary) hypertension Plan to address problem: Cont antihypertensives (4) Hypothyroidism Current Visit: Yes Status: Chronic Qualifiers: Hypothyroidism type: acquired Qualified Code(s): E03.9 - Hypothyroidism, unspecified Plan to address problem: Cont synthyroid (5) RA (rheumatoid arthritis) Current Visit: Yes Status: Inactive Plan to address problem: On Prednisone 5mg po qd (6) DVT prophylaxis Current Visit: Yes Status: Acute Plan to address problem: On Lovenox
[2018-04-08] MEDS ORDERED: APRESOLINE IV PRN (07:21)
[2018-04-08] MEDS ORDERED: AMBIEN PO PRN (07:24)
[2018-04-08] MEDS ORDERED: SODIUM CHLORIDE FLUSH SYRINGE 10 ML IV PRN (07:24)
[2018-04-08 07:45] LABS: Basophils # (Auto) 0.1 K/mm3 (0.0-0.1); Eosinophils # (Auto) 0.2 K/mm3 (0.0-0.4); Eosinophils % (Auto) 2.3 % (0.0-4.3); Hematocrit 36.7 % (30.3-42.9); Hemoglobin 12.6 gm/dl (10.1-14.3); Lymphocytes # (Auto) 1.8 K/mm3 (1.2-5.4); Lymphocytes % (Auto) 25.8 % (13.4-35.0); Mean Corpuscular HGB Conc 34 % (30-34); Mean Corpuscular Hemoglobin 29 pg (28-32); Mean Corpuscular Volume 83 fl (79-97); Monocytes # (Auto) 0.5 K/mm3 (0.0-0.8); Monocytes % (Auto) 6.6 % (0.0-7.3); Platelet Count 226 K/mm3 (140-440); Red Blood Count 4.41 M/mm3 (3.65-5.03); Red Cell Distribution Width 14.6 % (13.2-15.2)
[2018-04-08 08:13] LABS: Alanine Aminotransferase 31 units/L (7-56); Albumin 3.7 g/dL (3.9-5); BUN/Creatinine Ratio 18; Blood Urea Nitrogen 9 mg/dL (7-17); Calcium 8.7 mg/dL (8.4-10.2); Hemolysis Index 9
[2018-04-08] MEDS ORDERED: LEXISCAN IV ONE (09:10)
[2018-04-08] MEDS ORDERED: ZOFRAN IV PRN (09:30)
[2018-04-08] MEDS ORDERED: SYNTHROID PO SCH (10:00)
[2018-04-08] MEDS ORDERED: COZAAR PO SCH (10:00)
[2018-04-08] MEDS ORDERED: NON-FORMULARY (Prednisone [Prednisone (Rayos) Er Tab] 5 MG) PO SCH (10:00)
[2018-04-08] MEDS: PAMELOR PO SCH ×3 (11:36→21:11)
[2018-04-08] MEDS: SYNTHROID PO SCH (11:42)
[2018-04-08] MEDS ORDERED: K-DUR PO ONE ×2 (13:07→17:06)
[2018-04-08] MEDS ORDERED: IMDUR PO SCH (15:00)
[2018-04-08] MEDS: SODIUM CHLORIDE FLUSH SYRINGE 10 ML IV SCH ×2 (17:44→21:11)
--- NOTE | 2018-04-08 18:06 | Event Note ---
Date: 04/08/18 Patient admitted with hypertensive urgency and headache. She reports complaince with BP medication but does not recall the name. Her pharmacy states she has not been picking up her BP meds and she does not report getting it from elsewhere. She still has some medication from a script she picked up in july 2017. Restart home BP meds careful and monitor. Anticipate discharge in if BP improves Stress test is negative
[2018-04-08] MEDS: NORMODYNE PO SCH (21:10)
[2018-04-08] MEDS: PERCOCET 5/325 PO PRN (21:11)
[2018-04-08] MEDS ORDERED: NON-FORMULARY (Labetalol Hcl [Labetalol Hcl] 300 MG) PO SCH (22:00)
--- NOTE | 2018-04-08 23:09 | Treadmill Report ---
INDICATION: Chest pain. ORDERING PHYSICIAN: Vivien Ge MD FINDINGS: There is no scintigraphic evidence of myocardial ischemia. The left ventricle is normal in size and systolic function. The left ventricular ejection fraction measured at 64%. Normal wall motion and wall thickening is noted on gated imaging. CONCLUSION: Normal perfusion scan. JOB# [id number] RACHANA/IRASEMA
[2018-04-09] MEDS: PERCOCET 5/325 PO PRN ×3 (05:10→19:18)
[2018-04-09] MEDS: SYNTHROID PO SCH (05:10)
[2018-04-09] MEDS: DELTASONE PO SCH (09:12)
[2018-04-09] MEDS: PAMELOR PO SCH ×3 (09:12→21:38)
[2018-04-09] MEDS: HCTZ PO SCH (09:13)
[2018-04-09] MEDS: NORVASC PO SCH (09:13)
[2018-04-09] MEDS: NORMODYNE PO SCH ×2 (09:14→21:37)
[2018-04-09] MEDS: IMDUR PO SCH (09:14)
[2018-04-09] MEDS: COZAAR PO SCH (09:15)
[2018-04-09] MEDS: SODIUM CHLORIDE FLUSH SYRINGE 10 ML IV SCH ×2 (09:16→21:38)
[2018-04-09] MEDS ORDERED: NON-FORMULARY (Losartan [Cozaar] 100 MG) PO SCH (10:00)
--- NOTE | 2018-04-09 12:54 | Progress Note ---
Assessment and Plan - Acute chest pain Serial troponins and Lexiscan stress were - normal - Hypertensive urgency Hydralazine IV prn controlled - HTN (hypertension) Cont antihypertensives - Hypothyroidism Cont synthyroid - RA (rheumatoid arthritis) On Prednisone 5mg po qd - Abdominal CT a hypodense area in the right side of the basal ganglia. MRI recommended and ordered MRI showed no evidence of acute infarction. Findings on CT scan consistent with areas of chronic ischemic infection - DVT prophylaxis with Lovenox and GI with Pepcid Subjective Date of service: 04/09/18 Principal diagnosis: hypertensive emergency Interval history: denies any LUBIN, chest pain or Shortness of breath Objective - Constitutional Vitals: Vital Signs - 12hr 04/09/18 04/09/18 04/09/18 04:06 04:54 07:22 Temperature 98.2 F 97.9 F Pulse Rate 91 H 89 85 Respiratory 18 18 Rate Blood Pressure 134/76 Blood Pressure 115/62 [Left] O2 Sat by Pulse 99 97 97 Oximetry 04/09/18 04/09/18 04/09/18 09:13 09:14 09:15 Temperature Pulse Rate 69 69 69 Respiratory Rate Blood Pressure 134/76 134/76 134/76 Blood Pressure [Left] O2 Sat by Pulse Oximetry General appearance: Present: no acute distress, well-nourished - EENT Eyes: PERRL, EOM intact Ears: bilateral: normal - Neck Neck: supple, normal ROM - Respiratory Respiratory effort: normal Respiratory: bilateral: CTA - Breasts Breasts: deferred - Cardiovascular Rhythm: regular Heart Sounds: Present: S1 & S2. Absent: gallop, rub Extremities: pulses intact, No edema, normal color, Full ROM - Gastrointestinal General gastrointestinal: Present: soft, non-tender, non-distended, normal bowel sounds - Genitourinary Female genitourinary: deferred - Integumentary Integumentary: clear, warm, dry - Musculoskeletal Musculoskeletal: 1, strength equal bilaterally - Neurologic Neurologic: moves all extremities - Psychiatric Psychiatric: memory intact, appropriate mood/affect, intact judgment & insight - Labs CBC & Chem 7: 04/08/18 07:35 04/08/18 07:35 Labs: Abnormal lab results 04/08/18 Range/Units 15:22 Free T4 1.57 H (0.76-1.46) ng/dL
--- NOTE | 2018-04-09 16:20 | Magnetic Resonance Report ---
FINAL REPORT PROCEDURE: MR BRAIN WO CONTRAST TECHNIQUE: Magnetic resonance imaging of the brain was performed without contrast material. HISTORY: Right basal ganglia lesion on CT head. COMPARISON: CT scan of the brain dated 04/07/2018. FINDINGS: Skull base and calvarium: Normal. Paranasal sinuses: The visualized paranasal sinuses are clear. Cerebellum: No evidence of hemorrhage, ischemia or mass. Brainstem: No evidence of hemorrhage, ischemia or mass. Cerebrum: No evidence of hemorrhage, ischemia or mass. Mild patchy subcortical and periventricular white matter abnormal FLAIR and T2 signal intensity. Findings involve the centrum semiovale bilaterally. Similar subcentimeter areas of abnormal signal intensity in the bilateral basal ganglia, including the area seen on CT scan. No areas of restricted diffusion appreciated. Ventricles: Normal in size and morphology for the patient's age. Cavum septum pellucidum. Pituitary gland and sella: Slight convexity of the pituitary gland without mass effect on the optic chiasm. Globes and orbits: Normal. Vasculature: Normal arterial and venous flow voids. Other: None. IMPRESSION: Patchy subcortical and periventricular white matter areas of abnormal signal intensity, including the basal ganglia and area of concern on CT scan in the right basal ganglia. Findings likely represent chronic small vessel ischemic change or demyelination. There is no restricted diffusion to suggest acute ischemia. Slight convexity of the pituitary gland without mass effect on the contrast optic chiasm. This could be within normal anatomic variation, but consider thin sections super the pituitary gland with intravenous contrast if there is continued clinical concern.
[2018-04-10] MEDS: SYNTHROID PO SCH (05:39)
[2018-04-10] MEDS: PERCOCET 5/325 PO PRN (05:39)
[2018-04-10 09:41] VITALS: BP 133/86
[2018-04-10] MEDS: PAMELOR PO SCH (09:42)
[2018-04-10] MEDS: COZAAR PO SCH (09:42)
[2018-04-10] MEDS: IMDUR PO SCH (09:43)
[2018-04-10] MEDS: NORMODYNE PO SCH (09:44)
[2018-04-10] MEDS: NORVASC PO SCH (09:44)
[2018-04-10] MEDS: DELTASONE PO SCH (09:44)
[2018-04-10] MEDS: HCTZ PO SCH (09:45)
[2018-04-10] MEDS: SODIUM CHLORIDE FLUSH SYRINGE 10 ML IV SCH (09:45)
--- NOTE | 2018-04-10 09:50 | Discharge Summary ---
Providers - Providers Date of Admission: 04/07/18 15:57 Date of discharge: 04/10/18 Attending physician: BLANCO ARMSTRONG cardiology Primary care physician: CRM BUSINESS ANALYST Hospitalization Reason for admission: chest pain Condition: Fair Pertinent studies: stress test Procedures: none Hospital course: 42-year-old female presents to the emergency department from home via EMS with complaints of headache, chest pain, weakness, nausea and vomiting. The headache has been going on since last night. It is generalized and she denies any vision change, slurred speech or any neurological deficits. The chest pain started this morning. It is miediaternal, nonradiating and is a tightness sensation. Patient received a sublingual nitroglycerin and full dose aspirin in route with EMS without any relief. She has a past medical history of hypertension, rheumatoid arthritis, diabetes, fibromyalgia, hyperthyroidism. Her primary care physician is Dr. Jacquelin David. 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 No recent travel or sick contacts at home. Stress test done. No ischemic changes found. Stress test was done. The result was normal. CT scan of head that was done because of headache on admission showed right basal ganglia on 4 mm lesion. MRI was recommended. MRI was obtained. Findings showed no acute ischemic process. Headache has resolved. Chest pain resolved. Patient is been discharged today to follow for primary care physician in 3-5 days. Disposition: TO HOME OR SELFCARE Time spent for discharge: 35 min - Discharge Diagnoses (1) Acute chest pain Status: Acute (2) Headache Status: Acute Qualifiers: Headache type: unspecified Headache chronicity pattern: acute headache Intractability: not intractable Qualified Code(s): R51 - Headache (3) Hypertensive urgency Status: Acute (4) HTN (hypertension) Status: Chronic Qualifiers: Hypertension type: essential hypertension Qualified Code(s): I10 - Essential (primary) hypertension (5) Hypothyroidism Status: Chronic Qualifiers: Hypothyroidism type: acquired Qualified Code(s): E03.9 - Hypothyroidism, unspecified Core Measure Documentation - Palliative Care Palliative Care/ Comfort Measures: Not Applicable - Core Measures Any of the following diagnoses?: none Exam - Physical Exam Narrative exam: Constitutional: Well-nourished well-developed. In no distress Head: Normocephalic atraumatic Eyes: Pupils are equal round and reactive to light Nose: No enlarged turbinates, no septal deviation. Mouth: Moist mucous membranes. Neck: Supple no thyromegaly. No bruit. No JVD Heart: Regular rate and rhythm, S1-S2 abnormal. No rubs murmurs or gallop Lungs: Clear to auscultation bilaterally no rales or rhonchi Abdomen: Soft, nontender. Bowel sound are present. Extremities: No edema no cyanosis and no clubbing. Neuro: Alert oriented Oriented x3. No focal sensory or motor deficit. Skin: No rashes no hyperemic spots Psychiatry: Euthymic. Calm. - Constitutional Vitals: Temp Pulse Resp BP Pulse Ox 98.0 F 84 20 133/86 100 04/10/18 08:31 04/10/18 09:44 04/10/18 08:31 04/10/18 09:44 04/10/18 08:31 Plan Activity: advance as tolerated, fall precautions Weight Bearing Status: Weight Bear as Tolerated Diet: low salt Follow up with: PRIMARY CARE, [Primary Care Provider] - 3-5 Days Prescriptions: amLODIPine [Norvasc] 10 mg PO DAILY #30 tablet Hydrochlorothiazide [HCTZ] 25 mg PO QDAY #30 tablet ISOSORBIDE MONOnitrate [Imdur ER] 120 mg PO QDAY #30 tablet Labetalol HCl 300 mg PO BID #60 tablet Levothyroxine [Synthroid] 112 mcg PO DAILY@0600 #30 tablet Levothyroxine [Synthroid] 112 mcg PO QAM #30 tablet Nortriptyline [Pamelor] 25 mg PO TID #30 capsule Olmesartan (Nf) [Benicar (Nf)] 20 mg PO QDAY #30 tablet oxyCODONE /ACETAMINOPHEN [Percocet 5/325 mg] 1 tab PO Q6H PRN #16 tablet PRN Reason: Pain, Moderate (4-6) predniSONE [Deltasone] 5 mg PO QDAY #30 tablet Spironolactone [Aldactone] 100 mg PO QDAY #30 tablet
== END 2018-04-10 13:45 | disposition home or self-care (01) ==
LOC: ED 11:31 → 4A 15:57
PROVIDERS: ADMIT Internal Medicine; ATTEND Family Medicine
DX: R07.89 Other chest pain (principal); R51 Headache; I16.0 Hypertensive urgency; I16.1 Hypertensive emergency; I10 Essential (primary) hypertension; E03.9 Hypothyroidism, unspecified; E11.9 Type 2 diabetes mellitus without complications; J45.909 Unspecified asthma, uncomplicated; M06.9 Rheumatoid arthritis, unspecified; M79.7 Fibromyalgia
CPT/HCPCS: 36415; 70450; 70551; 71045; 78452; 80053; 81001; 82962; 83036; 84439; 84443; 84484; 84703; 85025; 85379; 93005; 93010; 93017; 96374; 96375; 96376; 99285; A9502; G0378; J0360; J2270; J2405; J2785; J7512

== ENCOUNTER 2020-02-06 08:53 | Emergency (ER) | payer MEDICARE ==
[2020-02-06] MEDS ORDERED: ACETAMINOPHEN 500 MG TAB PO ONE (09:50)
--- NOTE | 2020-02-06 09:53 | Emergency Department Report ---
ED General Adult HPI - General Chief complaint: High BP Stated complaint: HYPERTENSION Time Seen by Provider: 02/06/20 09:30 Source: patient, EMS Mode of arrival: Stretcher Limitations: No Limitations - History of Present Illness Initial comments: Patient is 44 years old female with history of hypertension and anxiety. Patient presented to the ER via EMS for high blood pressure. Patient stated that her blood pressure at home was 200/110. Patient also found to be febrile with a temperature of 100.7. Patient denied any cough, chills, runny nose or congestion. Patient also denied any urinary symptoms. -: This morning Severity scale (0 -10): 0 - Related Data Previous Rx's Medication Instructions Recorded Last Taken Type ISOSORBIDE MONOnitrate [Imdur ER] 120 mg PO QDAY #30 tablet 04/10/18 Unknown Rx Labetalol HCl 300 mg PO BID #60 tablet 04/10/18 Unknown Rx Levothyroxine [Synthroid] 112 mcg PO DAILY@0600 #30 tablet 04/10/18 Unknown Rx Levothyroxine [Synthroid] 112 mcg PO QAM #30 tablet 04/10/18 Unknown Rx Nortriptyline [Pamelor] 25 mg PO TID #30 capsule 04/10/18 Unknown Rx Olmesartan (Nf) [Benicar (Nf)] 20 mg PO QDAY #30 tablet 04/10/18 Unknown Rx Spironolactone [Aldactone] 100 mg PO QDAY #30 tablet 04/10/18 Unknown Rx amLODIPine 10 mg PO DAILY #30 tablet 04/10/18 Unknown Rx hydroCHLOROthiazide [HCTZ] 25 mg PO QDAY #30 tablet 04/10/18 Unknown Rx oxyCODONE /ACETAMINOPHEN [Percocet 1 tab PO Q6H PRN #16 tablet 04/10/18 Unknown Rx 5/325 mg] predniSONE [Deltasone] 5 mg PO QDAY #30 tablet 04/10/18 Unknown Rx Allergies Allergy/AdvReac Type Severity Reaction Status Date / Time No Known Allergies Allergy Verified 04/07/18 13:23 ED Review of Systems ROS: Stated complaint: HYPERTENSION Other details as noted in HPI Comment: All other systems reviewed and negative Constitutional: denies: chills, fever Respiratory: denies: cough, orthopnea, shortness of breath, SOB with exertion, SOB at rest, wheezing Cardiovascular: palpitations. denies: chest pain Gastrointestinal: denies: abdominal pain, nausea, vomiting, diarrhea, constipation, hematemesis Musculoskeletal: denies: back pain Neurological: denies: headache, weakness, numbness, paresthesias, confusion, abnormal gait Psychiatric: anxiety ED Past Medical Hx - Past Medical History Hx Hypertension: Yes Hx Diabetes: Yes Hx Arthritis: Yes (RA) Hx Asthma: Yes Additional medical history: fibromyalgia, "over active thyroid" - Surgical History Hx Cholecystectomy: Yes Additional Surgical History: hysterectomy 2001. x2. scar tissue remove - Social History Smoking Status: Never Smoker Substance Use Type: Alcohol - Medications Home Medications: Home Medications Medication Instructions Recorded Confirmed Last Taken Type ISOSORBIDE MONOnitrate [Imdur ER] 120 mg PO QDAY #30 tablet 04/10/18 Unknown Rx Labetalol HCl 300 mg PO BID #60 tablet 04/10/18 Unknown Rx Levothyroxine [Synthroid] 112 mcg PO DAILY@0600 #30 tablet 04/10/18 Unknown Rx Levothyroxine [Synthroid] 112 mcg PO QAM #30 tablet 04/10/18 Unknown Rx Nortriptyline [Pamelor] 25 mg PO TID #30 capsule 04/10/18 Unknown Rx Olmesartan (Nf) [Benicar (Nf)] 20 mg PO QDAY #30 tablet 04/10/18 Unknown Rx Spironolactone [Aldactone] 100 mg PO QDAY #30 tablet 04/10/18 Unknown Rx amLODIPine 10 mg PO DAILY #30 tablet 04/10/18 Unknown Rx hydroCHLOROthiazide [HCTZ] 25 mg PO QDAY #30 tablet 04/10/18 Unknown Rx oxyCODONE /ACETAMINOPHEN [Percocet 1 tab PO Q6H PRN #16 tablet 04/10/18 Unknown Rx 5/325 mg] predniSONE [Deltasone] 5 mg PO QDAY #30 tablet 04/10/18 Unknown Rx ED Physical Exam - General Limitations: No Limitations General appearance: alert, in no apparent distress, anxious - Head Head exam: Present: atraumatic, normocephalic, normal inspection - Eye Eye exam: Present: normal appearance - ENT ENT exam: Present: normal exam, normal orophraynx, mucous membranes moist - Neck Neck exam: Present: normal inspection, full ROM. Absent: tenderness, meningismus, lymphadenopathy, thyromegaly - Respiratory Respiratory exam: Present: normal lung sounds bilaterally - Cardiovascular Cardiovascular Exam: Present: tachycardia. Absent: systolic murmur, diastolic murmur - GI/Abdominal GI/Abdominal exam: Present: soft, normal bowel sounds, hernia. Absent: distende d, tenderness, guarding, rebound, rigid - Extremities Exam Extremities exam: Present: normal inspection, full ROM, normal capillary refill. Absent: pedal edema, calf tenderness - Back Exam Back exam: Present: normal inspection, full ROM. Absent: CVA tenderness (R), CVA tenderness (L) - Neurological Exam Neurological exam: Present: alert, oriented X3, CN II-XII intact, normal gait, reflexes normal. Absent: motor sensory deficit - Psychiatric Psychiatric exam: Present: anxious. Absent: depressed, homicidal ideation, suicidal ideation - Skin Skin exam: Present: warm, intact, normal color ED Course Vital Signs 02/06/20 02/06/20 02/06/20 09:35 09:56 10:19 Temperature 100.7 F H Pulse Rate 108 H 105 H 105 H Respiratory 25 H Rate Blood Pressure 198/98 Blood Pressure 198/98 [Left] O2 Sat by Pulse 98 Oximetry 02/06/20 02/06/20 11:21 11:44 Temperature 98.1 F Pulse Rate 98 H Respiratory 18 Rate Blood Pressure Blood Pressure 144/69 [Left] O2 Sat by Pulse 98 Oximetry ED Medical Decision Making - Lab Data Result diagrams: 02/06/20 10:13 02/06/20 10:13 - Radiology Data Radiology results: report reviewed - Medical Decision Making Patient is 44 years old female with history of hypertension and anxiety. Patient presented to the ER via EMS for high blood pressure. Patient stated that her blood pressure at home was 200/110. Patient also found to be febrile with a temperature of 100.7. Patient denied any cough, chills, runny nose or congestion. Patient also denied any urinary symptoms. Patient received labetalol with significant improvement in the blood pressure. Labs reviewed and showed elevated white blood cells. CT abdomen and pelvis showed a lingual pneumonia. Patient received Levaquin 500 mg IV and given prescription for Levaquin. Patient advised to follow-up with her primary care physician in the next 2 to 3 days and to return to the ER if she develop any new symptoms. Critical care attestation.: If time is entered above; I have spent that time in minutes in the direct care of this critically ill patient, excluding procedure time. ED Disposition Clinical Impression: Pneumonia, Malignant hypertension, Abdominal pain Disposition: DC-01 TO HOME OR SELFCARE Is pt being admited?: No Condition: Stable Instructions: Bacterial Pneumonia (ED), Hypertension (ED) Referrals: PRIMARY CARE, [Referring] - 3-5 Days
[2020-02-06] MEDS ORDERED: ACETAMINOPHEN 500 MG TAB ONE (09:54)
[2020-02-06 10:30] LABS: Basophils # (Auto) 0.1 K/mm3 (0.0-0.1); Basophils % (Auto) 0.6 % (0.0-1.8); Eosinophils % (Auto) 0.1 % (0.0-4.3); Hematocrit 41.7 % (30.3-42.9); Hemoglobin 13.5 gm/dl (10.1-14.3); Lymphocytes # (Auto) 1.4 K/mm3 (1.2-5.4); Lymphocytes % (Auto) 10.8 % (13.4-35.0); Mean Corpuscular HGB Conc 32 % (30-34); Mean Corpuscular Volume 81 fl (79-97); Monocytes % (Auto) 7.5 % (0.0-7.3); Platelet Count 231 K/mm3 (140-440); Red Blood Count 5.13 M/mm3 (3.65-5.03); Red Cell Distribution Width 16.6 % (13.2-15.2)
[2020-02-06 10:37] LABS: Bilirubin,Urine NEG (Negative); Blood,Urine NEG (Negative); Color,Urine Yellow (Yellow); Mucus,Urine FEW /HPF; RBC,Urine < 1.0 /HPF (0.0-6.0)
[2020-02-06 10:53] LABS: Alanine Aminotransferase 44 units/L (7-56); Albumin 4.3 g/dL (3.9-5); BUN/Creatinine Ratio 14; Blood Urea Nitrogen 10 mg/dL (7-17); Calcium 9.1 mg/dL (8.4-10.2); Hemolysis Index 5
[2020-02-06 15:08] VITALS: BP 170/70
== END 2020-02-06 15:18 | disposition home or self-care (01) ==
LOC: ED 08:53
DX: I10 Essential (primary) hypertension (principal); J18.9 Pneumonia, unspecified organism; R10.9 Unspecified abdominal pain; E11.9 Type 2 diabetes mellitus without complications; M13.88 Other specified arthritis, other site; J45.909 Unspecified asthma, uncomplicated; Z90.49 Acquired absence of other specified parts of digestive tract; Z90.710 Acquired absence of both cervix and uterus; Z79.899 Other long term (current) drug therapy; Z98.890 Other specified postprocedural states
CPT/HCPCS: 36415; 71045; 74177; 80053; 81001; 82140; 85025; 87040; 96365; 96375; 96376; 99285; J1956; Q9967